=== PATIENT | female | born 1995 | race Caucasian/White ===

== ENCOUNTER 2018-03-22 19:08 | Emergency (ER) | payer MEDICAID ==
[~2018-03-22] VITALS: Ht 152.4 cm; Wt 48.0 kg
[2018-03-22 21:25] VITALS: BP 108/66
== END 2018-03-22 21:35 | disposition home or self-care (01) ==
LOC: ER 19:08
DX: M25.60 Stiffness of unspecified joint, not elsewhere classified (principal); R07.89 Other chest pain
CPT/HCPCS: 81025; 93005; 99283; Z7610